=== PATIENT | male | born 1950 | race Caucasian/White ===

== ENCOUNTER → 2022-02-04 09:25 | Outpatient (BNVA) | payer MEDICARE, OTHER, SELFPAY | PROVIDERS: PCP Family Medicine; Visit Provider Nurse Practitioner | DX: R42 Dizziness and giddiness (principal); R26.89 Other abnormalities of gait and mobility; E11.9 Type 2 diabetes mellitus without complications; Z79.4 Long term (current) use of insulin | CPT/HCPCS: 99204 ==

== ENCOUNTER → 2022-02-09 12:27 | Outpatient (BNVA) | payer MEDICARE, OTHER, SELFPAY | PROVIDERS: PCP Family Medicine; Referring Provider Nurse Practitioner; Visit Provider Specialist | DX: R41.82 Altered mental status, unspecified (principal) | CPT/HCPCS: 95812; 95816 ==

== ENCOUNTER 2022-04-02 12:31 | Outpatient (CLI) | payer MEDICARE, OTHER, SELFPAY ==
--- NOTE | 2022-04-02 13:45 | MR_ITS ---
WS: [id number] MRI BRAIN WITHOUT CONTRAST HISTORY: R26.9 - Unspecified abnormalities of gait and mobility COMPARISON: None available. TECHNIQUE: Diffusion imaging, multiplanar T1, T2 and FLAIR imaging obtained. Unable to obtain IV acce ss for contrast exam. No acute infarct or hemorrhage. There are several scattered T2 and FLAIR signal hyperintensities in t he subcortical and periventricular white matter from small vessel disease. Mild bilateral cerebral atrophy. No prior infarct. Ventricles and extra-axial spaces are dilated on the basis of atrophy. No inferior displacement of cerebellar tonsils. The sella turcica and pituitary gland are unremarkabl e. Dural venous sinuses and [place] of [place] demonstrate no abnormality on this unenhanced studies. Paranasal sinuses: Clear. Mastoid air cells: Bilateral mastoid air cell effusions. Calvarium and scalp: Intact. MR/MR head wo con* [id number] IMPRESSION: 1. No acute infarct. 2. Moderate cerebral atrophy with mild small vessel ischemic changes. 3. No prior infarct.
== END 2022-04-02 12:32 | disposition home or self-care (01) ==
LOC: RAD 12:34
PROVIDERS: PCP Family Medicine; Visit Provider Nurse Practitioner
DX: R26.9 Unspecified abnormalities of gait and mobility (principal); R42 Dizziness and giddiness; G31.9 Degenerative disease of nervous system, unspecified; I67.82 Cerebral ischemia
CPT/HCPCS: 70551